=== PATIENT | female | born 1975 | race African-American/Black ===

== ENCOUNTER 2016-07-25 09:46 | Emergency (ER) | payer MEDICAID ==
[~2016-07-25] VITALS: Ht 165.1 cm; Wt 68.0 kg
[~2016-07-25 09:46] MED LIST: FLUO10CA63 PO
[2016-07-25 11:29] LABS: BASOPHILS % 0.3 % (0.0-2.0); EOSINOPHILS % 1.2 % (0.0-5.0); HEMATOCRIT. 39.1 % (36.0-48.0); HEMOGLOBIN. 12.6 g/dL (12.0-16.0); LYMPHOCYTES % 25.6 % (20.0-50.0); MEAN CORPUSCULAR HGB CONC 32.1 g/dL (31.0-37.0); MEAN CORPUSCULAR VOLUME 81.1 fL (81.0-99.0); MEAN PLATELET VOLUME 7.4 fl (7.4-10.4); MONOCYTES % 5.3 % (2.0-8.0); NEUTROPHILS % 67.6 % (40.0-76.0); PLATELET 237 x1000/uL (130-400); RED BLOOD CELL COUNT 4.82 mill/uL (4.2-5.4); RED CELL DISTRIBUTION WIDTH 14.5 % (11.6-14.6); WHITE BLOOD COUNT 6.8 x1000/uL (4.5-11.0)
[2016-07-25 11:34] LABS: CHLORIDE 103 mEq/L (98-107); INDEX HEMOLYSI 1 (1-3); INDEX ICTERIC 1 (1-4); INDEX LIPEMIC 1 (1-3)
[2016-07-25 11:44] LABS: ACETAMINOPHEN < 2 ug/mL (10-30); ALANINE AMINOTRANSFERASE 19 IU/L (13-61); ALBUMIN 3.6 g/dL (3.4-5.0); ANION GAP 12; CARBON DIOXIDE 29 mEq/L (21-32); ETHANOL BLOOD < 10 mg/dL; UREA NITROGEN BLOOD 11 mg/dL (7-21); eGFR > 60 mL/min (>60)
[2016-07-25] MEDS ORDERED: LORAZEPAM 1MG TABLET PO ONE (14:30)
[2016-07-25 17:45] VITALS: BP 122/59
== END 2016-07-25 18:36 | disposition home or self-care (01) ==
LOC: ER 09:56
DX: F31.9 Bipolar disorder, unspecified (principal); R44.0 Auditory hallucinations; F84.5 Asperger's syndrome; Z91.14 Patient's other noncompliance with medication regimen
CPT/HCPCS: 36415; 80053; 80307; 80329; 85025; 99284; G0482

== ENCOUNTER 2016-07-27 04:08 | Emergency (ER) | payer MEDICAID ==
[~2016-07-27] VITALS: Ht 170.2 cm; Wt 77.0 kg
[2016-07-27] MEDS ORDERED: OLANZAPINE 5MG TABLET ODT PO ONE (06:45)
[2016-07-27 07:24] LABS: BASOPHILS % 0.2 % (0.0-2.0); EOSINOPHILS % 1.7 % (0.0-5.0); HEMATOCRIT. 37.4 % (36.0-48.0); LYMPHOCYTES % 20.3 % (20.0-50.0); MEAN CORPUSCULAR HGB CONC 32.1 g/dL (31.0-37.0); MEAN PLATELET VOLUME 7.6 fl (7.4-10.4); MONOCYTES % 5.9 % (2.0-8.0); NEUTROPHILS % 71.9 % (40.0-76.0); PLATELET 222 x1000/uL (130-400); RED BLOOD CELL COUNT 4.62 mill/uL (4.2-5.4); RED CELL DISTRIBUTION WIDTH 14.2 % (11.6-14.6); WHITE BLOOD COUNT 7.1 x1000/uL (4.5-11.0)
[2016-07-27 07:35] LABS: ALANINE AMINOTRANSFERASE 21 IU/L (13-61); ALBUMIN 3.9 g/dL (3.4-5.0); ANION GAP 13; CALCIUM 9.5 mg/dL (8.5-10.1); CARBON DIOXIDE 30 mEq/L (21-32); CHLORIDE 103 mEq/L (98-107); ETHANOL BLOOD < 10 mg/dL; INDEX HEMOLYSI 1 (1-3); INDEX ICTERIC 1 (1-4); INDEX LIPEMIC 1 (1-3); UREA NITROGEN BLOOD 18 mg/dL (7-21); eGFR > 60 mL/min (>60)
[2016-07-27 09:59] LABS: *AMPHETAMINES SCREEN URINE NEGATIVE (NEGATIVE); *BARBITURATES SCREEN URINE NEGATIVE (NEGATIVE); *BENZODIAZEPINES SCREEN URINE NEGATIVE (NEGATIVE); *COCAINE SCREEN URINE NEGATIVE (NEGATIVE); CANNABINOID URINE SCREEN NEGATIVE (NEGATIVE); ECSTASY MDMA SCREEN URINE NEGATIVE (NEGATIVE); METHADONE URINE SCREEN NEGATIVE (NEGATIVE); OPIATES URINE SCREEN NEGATIVE (NEGATIVE); PHENCYCLIDINE URINE SCREEN NEGATIVE (NEGATIVE)
[2016-07-27 11:16] VITALS: BP 119/71
== END 2016-07-27 13:06 | disposition home or self-care (01) ==
LOC: ER 05:49
DX: F20.9 Schizophrenia, unspecified (principal)
CPT/HCPCS: 36415; 80053; 80305; 81025; 85025; 99284; G0482

== ENCOUNTER 2016-11-05 11:39 | Emergency (ER) | payer MEDICAID ==
[~2016-11-05] VITALS: Ht 167.6 cm; Wt 73.0 kg
[2016-11-05 12:27] VITALS: BP 127/77
[2016-11-05] MEDS ORDERED: KETOROLAC 60MG/2ML VIAL IM ONE (16:00)
== END 2016-11-05 16:09 | disposition home or self-care (01) ==
LOC: ER 15:51
DX: M54.41 Lumbago with sciatica, right side (principal)
CPT/HCPCS: 81025; 96372; 99283; J1885

== ENCOUNTER 2017-09-24 15:16 | Emergency (ER) | payer MEDICAID ==
[~2017-09-24] VITALS: Ht 165.1 cm; Wt 70.0 kg
[~2017-09-24 15:16] MED LIST changes: +FLUO10CA25 PO; -FLUO10CA63 PO
[2017-09-24] MEDS ORDERED: LORAZEPAM 2MG/ML CPJ IV ONE (16:45)
[2017-09-24 18:02] LABS: BASOPHILS % 0.1 % (0.0-2.0); EOSINOPHILS % 0.6 % (0.0-5.0); HEMATOCRIT. 37.1 % (36.0-48.0); HEMOGLOBIN. 12.1 g/dL (12.0-16.0); LYMPHOCYTES % 23.9 % (20.0-50.0); MEAN CORPUSCULAR VOLUME 79.5 fL (81.0-99.0); MEAN PLATELET VOLUME 7.5 fl (7.4-10.4); MONOCYTES % 5.1 % (2.0-8.0); NEUTROPHILS % 70.3 % (40.0-76.0); PLATELET 237 x1000/uL (130-400); RED BLOOD CELL COUNT 4.67 mill/uL (4.2-5.4); RED CELL DISTRIBUTION WIDTH 14.6 % (11.6-14.6)
[2017-09-24 18:06] LABS: CHLORIDE 107 mEq/L (98-107); INR 1.1; PARTIAL THROMBOPLASTIN TIME 26.4 sec (23.4-31.0); PROTHROMBIN TIME 11.3 sec (9.4-11.6)
[2017-09-24 18:17] LABS: *AMPHETAMINES SCREEN URINE NEGATIVE (NEGATIVE); *BARBITURATES SCREEN URINE NEGATIVE (NEGATIVE); *BENZODIAZEPINES SCREEN URINE NEGATIVE (NEGATIVE); *COCAINE SCREEN URINE NEGATIVE (NEGATIVE); CANNABINOID URINE SCREEN NEGATIVE (NEGATIVE)
[2017-09-24 18:18] LABS: METHADONE URINE SCREEN NEGATIVE (NEGATIVE); OPIATES URINE SCREEN NEGATIVE (NEGATIVE); PHENCYCLIDINE URINE SCREEN NEGATIVE (NEGATIVE)
[2017-09-25] MEDS ORDERED: MIDAZOLAM HCL 2 MG/2 ML VIAL IM ONE ×2 (10:15→13:45)
[2017-09-25] MEDS ORDERED: OLANZAPINE 10 MG/VIAL IM ONE ×2 (10:15→13:45)
[2017-09-26] MEDS ORDERED: OLANZAPINE 10 MG/VIAL IM ONE (16:00)
[2017-09-26 17:11] VITALS: BP 128/75
== END 2017-09-26 17:32 | disposition home or self-care (01) ==
LOC: ER 15:27
DX: F20.9 Schizophrenia, unspecified (principal)
CPT/HCPCS: 36415; 70450; 71045; 80053; 80305; 81025; 83690; 84484; 85025; 85610; 85730; 93005; 96374; 96375; 99285; J2060; J3490; J2250

== ENCOUNTER 2017-09-26 22:54 | Emergency (ER) | payer MEDICAID ==
[~2017-09-26] VITALS: Ht 165.1 cm; Wt 70.0 kg
[2017-09-27] MEDS ORDERED: HALOPERIDOL LACTATE 5MG/ML VIAL IM STA (01:18)
[2017-09-27] MEDS ORDERED: LORAZEPAM 2MG/ML CPJ IM STA (01:18)
[2017-09-27] MEDS ORDERED: LORAZEPAM 2MG/ML CPJ ONE (01:34)
[2017-09-27] MEDS ORDERED: HALOPERIDOL LACTATE 5MG/ML VIAL IM ONE (01:35)
[2017-09-27 02:25] LABS: CLARITY URINE CLOUDY (CLEAR); COLOR URINE YELLOW (YELLOW); KETONES URINE 1+ (NEGATIVE); LEUKOCYTE ESTERASE URINE 3+ (NEGATIVE); NITRITE URINE NEGATIVE (NEGATIVE); OCCULT BLOOD URINE NEGATIVE (NEGATIVE); PH URINE 5.5 (4.5-8.0); PROTEIN URINE NEGATIVE (NEGATIVE); SPECIFIC GRAVITY URINE 1.018 (1.005-1.030); UROBILINOGEN URINE 0.2 E.U./dL (0.2-1.0)
[2017-09-27 02:34] LABS: *AMPHETAMINES SCREEN URINE NEGATIVE (NEGATIVE); *BARBITURATES SCREEN URINE NEGATIVE (NEGATIVE)
[2017-09-27 02:35] LABS: *COCAINE SCREEN URINE NEGATIVE (NEGATIVE); CANNABINOID URINE SCREEN NEGATIVE (NEGATIVE); METHADONE URINE SCREEN NEGATIVE (NEGATIVE); OPIATES URINE SCREEN NEGATIVE (NEGATIVE); PHENCYCLIDINE URINE SCREEN NEGATIVE (NEGATIVE)
[2017-09-27 03:05] LABS: *BENZODIAZEPINES SCREEN URINE PRESUMTIVE POSITIVE (NEGATIVE)
[2017-09-27] MEDS ORDERED: CEPHALEXIN 500MG CAPSULE PO ONE (06:00)
[2017-09-27] MEDS ORDERED: LORAZEPAM 1MG TABLET PO PRN (06:00)
[2017-09-27] MEDS ORDERED: RISPERIDONE 1MG TABLET PO SCH (09:00)
[2017-09-27 16:23] VITALS: BP 105/69
== END 2017-09-27 18:14 | disposition home or self-care (01) ==
LOC: ER 22:54
DX: F29 Unspecified psychosis not due to a substance or known physiological condition (principal); S00.81XA Abrasion of other part of head, initial encounter; X58.XXXA Exposure to other specified factors, initial encounter; Y93.9 Activity, unspecified; Y92.9 Unspecified place or not applicable; F32.9 Major depressive disorder, single episode, unspecified; F20.9 Schizophrenia, unspecified
CPT/HCPCS: 80305; 81003; 81025; 87086; 96372; 99284; J1630; J2060

== ENCOUNTER 2017-09-28 15:11 | Emergency (ER) | payer MEDICAID, OTHER ==
[~2017-09-28] VITALS: Ht 167.6 cm; Wt 88.0 kg
[2017-09-28 15:13] VITALS: BP 140/70
== END 2017-09-28 21:00 | disposition left against medical advice (07) ==
LOC: ER 15:37
DX: Z53.21 Procedure and treatment not carried out due to patient leaving prior to being seen by health care provider (principal)

== ENCOUNTER 2017-09-30 08:34 | Emergency (ER) | payer OTHER, MEDICAID ==
[~2017-09-30] VITALS: Ht 172.7 cm; Wt 85.0 kg
[2017-09-30] MEDS ORDERED: DIPHENHYDRAMINE 50MG/ML VIAL IM STA (10:56)
[2017-09-30] MEDS ORDERED: LORAZEPAM 2MG/ML CPJ IM STA (10:56)
[2017-09-30] MEDS ORDERED: OLANZAPINE 10 MG/VIAL IM ONE (11:00)
[2017-09-30 11:55] LABS: BASOPHILS % 0.2 % (0.0-2.0); EOSINOPHILS % 0.5 % (0.0-5.0); HEMATOCRIT. 36.1 % (36.0-48.0); HEMOGLOBIN. 12.1 g/dL (12.0-16.0); LYMPHOCYTES % 20.3 % (20.0-50.0); MEAN CORPUSCULAR HEMOGLOBIN 26.7 pg (28.0-32.0); MEAN CORPUSCULAR VOLUME 79.6 fL (81.0-99.0); MEAN PLATELET VOLUME 7.5 fl (7.4-10.4); MONOCYTES % 6.5 % (2.0-8.0); NEUTROPHILS % 72.5 % (40.0-76.0); PLATELET 209 x1000/uL (130-400); RED BLOOD CELL COUNT 4.54 mill/uL (4.2-5.4); RED CELL DISTRIBUTION WIDTH 14.4 % (11.6-14.6)
[2017-09-30 11:59] LABS: CHLORIDE 103 mEq/L (98-107)
[2017-09-30 12:04] LABS: ETHANOL BLOOD < 10 mg/dL
[2017-09-30 13:22] LABS: CLARITY URINE CLEAR (CLEAR); COLOR URINE YELLOW (YELLOW); KETONES URINE 2+ (NEGATIVE); LEUKOCYTE ESTERASE URINE 1+ (NEGATIVE); NITRITE URINE NEGATIVE (NEGATIVE); OCCULT BLOOD URINE NEGATIVE (NEGATIVE); PH URINE 5.5 (4.5-8.0); PROTEIN URINE NEGATIVE (NEGATIVE); SPECIFIC GRAVITY URINE 1.027 (1.005-1.030); UROBILINOGEN URINE 0.2 E.U./dL (0.2-1.0)
[2017-09-30 14:23] LABS: *BENZODIAZEPINES SCREEN URINE NEGATIVE (NEGATIVE); *COCAINE SCREEN URINE NEGATIVE (NEGATIVE)
[2017-09-30 14:24] LABS: *AMPHETAMINES SCREEN URINE NEGATIVE (NEGATIVE); CANNABINOID URINE SCREEN NEGATIVE (NEGATIVE); METHADONE URINE SCREEN NEGATIVE (NEGATIVE); OPIATES URINE SCREEN NEGATIVE (NEGATIVE); PHENCYCLIDINE URINE SCREEN NEGATIVE (NEGATIVE)
[2017-09-30 14:25] LABS: *BARBITURATES SCREEN URINE NEGATIVE (NEGATIVE)
[2017-09-30 18:55] VITALS: BP 131/71
== END 2017-09-30 19:20 | disposition home or self-care (01) ==
LOC: ER 08:42
DX: R45.851 Suicidal ideations (principal); F20.9 Schizophrenia, unspecified
CPT/HCPCS: 36415; 80053; 80305; 81003; 85025; 96372; 99284; G0482; J1200; J2060; J3490; Z7610